=== PATIENT | female | born 1950 | race Two or more races ===

== ENCOUNTER → 2020-07-19 08:00 | Outpatient (CLI) | payer OTHER | END | disposition home or self-care (01) | LOC: ADM 07-18 14:00 → LAB 08:00 → EDSTATUS 07-26 14:00 → AMB-ENDOS 07-26 14:00 | PROVIDERS: ATTEND Colon & Rectal Surgery | DX: R15.9 Full incontinence of feces (principal); Z12.11 Encounter for screening for malignant neoplasm of colon; Z12.12 Encounter for screening for malignant neoplasm of rectum; Z20.822 Contact with and (suspected) exposure to COVID-19; Z11.59 Encounter for screening for other viral diseases; Z20.828 Contact with and (suspected) exposure to other viral communicable diseases ==